=== PATIENT | female | born 1985 | race Caucasian/White ===

== ENCOUNTER 2017-06-07 17:09 | Observation (INO) | payer OTHER ==
[~2017-06-07 17:09] MED LIST: ISOVUE-370 76%-LOCM 1 ML ONE
[2017-06-07 17:40] LABS: #Lymphocytes 0.8 thou/uL (1.20-3.40); #Monocytes 0.7 thou/uL (0.11-0.59); #Neutrophils 4.4 thou/uL (1.40-6.50); %Basophils 0.3 % (0.0-1.0); %Eosinophils 0.6 % (0.0-10.0); %Lymphocytes 12.7 % (21.0-51.0); %Monocytes 12.4 % (0.0-10.0); %Neutrophils 73.9 % (42.0-75.0); Hemoglobin 11.9 g/dL (12.0-16.0); Mean Corpuscular HGB CONC 33.1 g/dL (32.0-36.0); Mean Corpuscular Hemoglobin 27.2 pg (27.0-31.0); Mean Corpuscular Volume 82.2 fl (81.0-99.0); Mean Platelet Volume 6.8 fL (7.4-10.4); Platelet Count 284 thou/uL (130-400); RBC Distribution Width 13.2 % (11.5-14.5); Red Blood Cell (RBC) Count 4.39 mill/uL (4.20-5.40); White Blood Cell (WBC) Count 5.9 thou/uL (4.8-10.8)
[2017-06-07] MEDS ORDERED: Ondansetron HCl/PF 4 MG/2 ML Vial ONE ×2 (17:52→21:40)
[2017-06-07] MEDS ORDERED: Acetaminophen 500 MG TAB ONE (17:52)
[2017-06-07 17:57] LABS: BHCG - Serum Negative (NEGATIVE); Pregs Control Background? CLEAR/WHITE (CLR/WHITE); Pregs Control Bar Appear? YES (CONTROL BAR)
--- NOTE | 2017-06-07 18:01 | RAD ---
CHEST ONE VIEW PORTABLE: 06/07/17 HISTORY: 31-year-old female with history of shortness of breath, vomiting, and dyspnea. Monitor leads overlie the chest. Heart size is within normal limits. No confluent pneumonia, overt ed zander, or pleural effusion. IMPRESSION: No acute intrathoracic disease. No evidence for edema, pneumonia, or pleural effusion. POS: [facility]
[2017-06-07 18:05] LABS: ALT (SGPT) 17 U/L (8-55); AST (SGOT) 16 U/L (5-34); Albumin 4.3 g/dL (3.5-5.0); Alkaline Phosphatase 61 U/L (40-150); Anion Gap 14 mmol/L (10-20); BUN (Urea Nitrogen) 8 mg/dL (7.0-18.7); Bilirubin, Total 0.6 mg/dL (0.2-1.2); CK (CPK) 60 U/L (29-168); CKMB 0.3 ng/mL (0-6.6); Calc. Creatinine Clearance 0 mL/min (70-130); Calcium 9.3 mg/dL (7.8-10.44); Carbon Dioxide 22 mmol/L (22-29); Chloride 104 mmol/L (98-107); Estimated GFR-MDRD 79; Globulin 3.7 g/dL (2.4-3.5); Glucose 101 mg/dL (70-105); Sodium 136 mmol/L (136-145); Troponin I Less than 0.010 ng/mL (< 0.028)
[2017-06-07] MEDS ORDERED: Promethazine HCl 25 MG/ML VIAL ONE (18:22)
--- NOTE | 2017-06-07 19:26 | ULT ---
RIGHT LOWER EXTREMITY VENOUS DUPLEX ULTRASOUND INCLUDING COLOR AND SPECTRAL DOPPLER IMAGIN06/07/17 HISTORY: 31-year-old female with history of right leg pain. Exam performed from groin to ankle including visualized greater saphenous, common femoral, superficia l femoral, profunda femoral, popliteal, and trifurcation, and posterior tibial vein regions. There is phasic flow at all levels with normal compressibility and normal augmentation. No intraluminal throm bus. IMPRESSION: No evidence for deep venous thrombosis. POS: [facility]
--- NOTE | 2017-06-07 20:22 | CT ---
CT ANGIO OF CHEST WITH IV CONTRAST: 06/07/17 Multiple axial tomograms obtained through the chest following pulmonary angio protocol with multiplan ar reconstructions and 3D postprocessing. INDICATION: Shortness of breath and chest pain. FINDINGS: Pulmonary arteries show adequate opacification. There are multiple small bilateral pulmonary emboli identified. Tiny emboli are seen to the segmental level of all lobes bilaterally. Review of the lung tran reveal nodular infiltrative process which is most prominent involving the l eft upper lobe. There are numerous nodular opacities present with the largest measuring up to 1.6 cm. An atypical nodular infectious infiltrate should be considered. The lung tran otherwise appear clear. No effusion. Mediastinum is unremarkable. Images through the upper abdomen unremarkable. IMPRESSION: 1. Numerous small bilateral pulmonary emboli seen to segmental arteries of all lobes of both janeen gs. 2. There is a nodular infiltrative process involving the left upper lobe. An atypical infectious process should be considered. Close followup is recommended. Findings were relayed to Dr. Miranda. Code CR POS: [facility]
[2017-06-07] MEDS ORDERED: Ketorolac Tromethamine 30 MG/ML VIAL ONE (20:24)
[2017-06-07] MEDS ORDERED: Azithromycin 500 MG VIAL ONE (20:36)
[2017-06-07] MEDS ORDERED: HYDROcodone/Acetaminophen 5/325 mg Tablet ONE (21:40)
[2017-06-07] MEDS ORDERED: cefTRIAXone\\ROCEPHIN 2 GM in Sodium Chloride 0.9% 100 ML IVPB SCH (21:45)
[2017-06-07] MEDS ORDERED: Rivaroxaban 15 MG TAB PO SCH ×2 (22:00→22:53)
[2017-06-07] MEDS ORDERED: Dextrose 5 % And 0.9 % NaCl 1,000 ML IV SCH (22:45)
[2017-06-07] MEDS ORDERED: Ondansetron ODT 4 MG TAB PO PRN (22:53)
[2017-06-07] MEDS ORDERED: HYDROcodone/Acetaminophen 5/325 mg Tablet PO PRN (22:53)
[2017-06-07] MEDS ORDERED: Acetaminophen 325 MG TAB PO PRN (22:53)
[2017-06-07] MEDS ORDERED: Ondansetron HCl/PF 4 MG/2 ML Vial IVP PRN (22:53)
[2017-06-07 22:55] VITALS: BMI 43.0
[2017-06-07 23:50] LABS: INR-International Normal Ratio 1.2; PTT 35.1 SEC (22.9-36.1)
[2017-06-07 23:51] LABS: D-Dimer Test 1.59 *mcg/mL (0.27-0.43)
[2017-06-07] MEDS: tiZANidine HCl 4 MG TAB PO PRN (23:58)
[2017-06-08] MEDS ORDERED: traMADol HCl 50 MG TAB PO SCH (03:15)
[2017-06-08 04:59] LABS: Anion Gap 9 mmol/L (10-20); BUN (Urea Nitrogen) 8 mg/dL (7.0-18.7); Calc. Creatinine Clearance 175 mL/min (70-130); Calcium 8.4 mg/dL (7.8-10.44); Carbon Dioxide 23 mmol/L (22-29); Chloride 109 mmol/L (98-107); Estimated GFR-MDRD 86; Glucose 109 mg/dL (70-105); Magnesium 2.1 mg/dL (1.6-2.6); Potassium 3.8 mmol/L (3.5-5.1); Sodium 137 mmol/L (136-145)
[2017-06-08 05:08] LABS: Band 2 % (5-11); Hemoglobin 10.2 g/dL (12.0-16.0); Lymphocytes 35 % (21-51); MDiff Complete? YES; Mean Corpuscular HGB CONC 33.4 g/dL (32.0-36.0); Mean Corpuscular Hemoglobin 27.7 pg (27.0-31.0); Mean Corpuscular Volume 83.1 fl (81.0-99.0); Monocytes 17 % (0-10); Neutrophil 46 % (42-75); Platelet Count 241 thou/uL (130-400); RBC Distribution Width 13.1 % (11.5-14.5); Red Blood Cell (RBC) Count 3.67 mill/uL (4.20-5.40); White Blood Cell (WBC) Count 4.2 thou/uL (4.8-10.8)
[2017-06-08] MEDS: Doxycycline 100 MG CAP PO SCH ×2 (08:25→20:30)
[2017-06-08] MEDS: Rivaroxaban 15 MG TAB PO SCH ×2 (08:26→20:30)
[2017-06-08] MEDS: tiZANidine HCl 4 MG TAB PO PRN ×3 (08:26→21:55)
[2017-06-08] MEDS: Famotidine 20 MG TAB PO SCH ×2 (08:26→20:30)
--- NOTE | 2017-06-08 08:41 | HP ---
DATE OF ADMISSION: 06/07/2017 TIME OF SERVICE: 2245 hours. PRIMARY CARE PHYSICIAN: Dr. Inez Barreto. CHIEF COMPLAINT: Shortness of breath, nausea, vomiting, and chest pain. HISTORY OF PRESENT ILLNESS: Ms. Nguyen is a 31-year-old female with history of obesity and past Meckel's diverticulum status post-surgical resection who presents to the emergency department for complaints of shortness of breath and right leg cramps. This has been going on really for 2 days with leg cramps worse today. This evening, she developed nausea and vomiting and a fever of 101 and some chest tightness. She presents to the emergency department for workup. Labs were normal. D-dimer was elevated at 1.99. She had a CT angiogram that showed multiple small pulmonary emboli in the bilateral lungs and left upper lobe atypical infiltrate. She did have fever in the ER to 101+ and so was given a dose of Rocephin. We were called for admission. On arrival to the floor, the patient was feeling better. No nausea, vomiting anymore. Still continues to have right lower extremity cramps. She has had some pleuritic type chest pain, rated about 7/10 and some functional shortness of breath, but feels like she is getting air in and out okay. She did not receive any anticoagulation in the emergency department. PAST MEDICAL HISTORY: None. PAST SURGICAL HISTORY: 1. Partial small bowel resection for Meckel's diverticulum. 2. Appendectomy with cholecystectomy. 3. Bilateral tubal ligation. HOME MEDICATIONS: None. ALLERGIES: ADHESIVE BANDAGE, REGLAN and PENICILLIN G. They both cause almost projectile like vomiting. FAMILY HISTORY: Negative for clotting or bleeding disorders. No immune dysfunction. SOCIAL HISTORY: Negative for habits x3. 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 She has not had any recent travel, no prolonged car trips or plane rides. REVIEW OF SYSTEMS: A 10-point review of systems was performed and is negative for all systems except as per HPI. PHYSICAL EXAMINATION: VITAL SIGNS: Temperature is 100.6, pulse 117, blood pressure 159/73, respiratory rate 21, satting 97% on room air. GENERAL: She is awake. She is alert. She is oriented x3, she is a well- developed, well-nourished, obese white female, appears to be in no distress. HEENT: Normocephalic and atraumatic. Pupils are equal, round, and reactive bilaterally, mucous membranes are moist. She has no visible lesion, no thrush. NECK: Supple. There is no lymphadenopathy, no JVD, no thyromegaly. LUNGS: Clear. She has good air movement. Symmetrical chest excursion. There is no wheezing, no rales, no rhonchi. No prolonged expiratory phase. CARDIOVASCULAR: She has normal S1, S2. She is tachycardic, but regular. No audible murmurs. ABDOMEN: Obese, nontender, nondistended. She has no rebound, rigidity or guarding. I cannot palpate internal organs. EXTREMITIES: Show no signs of clubbing, and no edema. SKIN: Warm, moist, and well perfused. There are no rashes or lesions. Does have some muscle tenseness in the right calf. There are no palpable cords. NEUROLOGIC: Cranial nerves II-XII are grossly intact without any focal neurologic deficit. She has 5/5 strength in all 4 extremities. She has a normal speech pattern. MUSCULOSKELETAL: Normal to inspection. Large joints appear uninflamed. There are no palpable effusions and good range of motion. LABORATORY DATA: Sodium 136, potassium 4.0, chloride 104, bicarbonate 22, BUN 8 , creatinine 0.83, glucose 101, calcium 9.3. Liver function is completely within normal limits. Her CBC shows white count of 5.9, hemoglobin 11.9, hematocrit of 32.1, platelet count is 284,000. Chest x-ray is negative. CT angiogram showed multiple small pulmonary emboli and left upper lobe atypical infiltrate as above. Ultrasound of the right leg is negative for DVT. ASSESSMENT AND PLAN: 1. Pulmonary emboli: Patient has multiple small emboli present on CT angiogram. I will start her on Xarelto 15 mg p.o. b.i.d. She does have a which is on their formulary. She will need the starter pack and then 2 months of supply. She does want to get a 90-day supply at once. As far as workup, I did get hypercoagulable panels drawn before she got her first dose of Xarelto, so we will follow up on the results of that. 2. Chest pain secondary to pulmonary emboli. Symptomatic treatment. 3. Sinus tachycardia secondary to pulmonary emboli. Watch for overnight observation. Biomarkers were negative. Watch on telemetry. 4. Obesity. 5. Atypical left upper lobe pneumonia. We will place her on doxycycline 100 mg p.o. b.i.d. Watch overnight for observation. If things look better in the morning, we will let her go home. JUANID
[2017-06-08] MEDS: HYDROcodone/Acetaminophen 5/325 mg Tablet PO PRN ×2 (12:38→16:57)
--- NOTE | 2017-06-08 14:27 | PDOC.PN ---
- Subjective Encounter Start Date: 06/08/17 Encounter Start Time: 14:29 Subjective: No new complaints -: No acute events overnight - Objective Resuscitation Status: Resuscitation Status FULL:Full Resuscitation MAR Reviewed: Yes Vital Signs & Weight: Vital Signs (12 hours) Temp Pulse Resp BP Pulse Ox 06/08/17 11:28 97.6 F 72 16 98/52 L 97 06/08/17 07:41 97.9 F 66 20 06/08/17 07:05 97.9 F 79 18 109/63 100 06/08/17 04:07 66 98/57 L 06/08/17 03:08 97.9 F 64 20 89/54 L 97 Weight Weight 235 lb 9.6 oz I&O: 06/07/17 06/08/17 06/09/17 06:59 06:59 06:59 Intake Total 200 600 Output Total 500 200 Balance -300 400 Result Diagrams: 06/08/17 04:07 06/08/17 04:07 Phys Exam - Physical Examination Constitutional: NAD HEENT: PERRLA, moist MMs, sclera anicteric, TM's clear Neck: no JVD, supple, full ROM Respiratory: no wheezing, no rales, no rhonchi, clear to auscultation bilateral Cardiovascular: RRR (s1 s2 only), no significant murmur, no rub Gastrointestinal: soft, non-tender, no distention, positive bowel sounds Musculoskeletal: no edema, pulses present Neurological: non-focal, normal sensation, moves all 4 limbs Psychiatric: normal affect, A&O x 3 Skin: no rash, normal turgor Dx/Plan (1) Acute pulmonary embolism Code(s): I26.99 - OTHER PULMONARY EMBOLISM WITHOUT ACUTE COR PULMONALE Status : Acute Qualifiers: Acute cor pulmonale presence: without acute cor pulmonale Comment: Stable. Started on Xarelto. ECHO ordered. (2) Atypical pneumonia Code(s): J18.9 - PNEUMONIA, UNSPECIFIED ORGANISM Status: Acute Comment: Continue Doxycycline. (3) Chest pain Code(s): R07.9 - CHEST PAIN, UNSPECIFIED Status: Resolved Qualifiers: Chest pain type: other chest pain Qualified Code(s): R07.89 - Other chest pain; R07.8 - Other chest pain Comment: 2/2 PE. Resolved. (4) Tachycardia Code(s): R00.0 - TACHYCARDIA, UNSPECIFIED Status: Resolved Comment: 04/08 PE. (5) Obesities, morbid Code(s): E66.01 - MORBID (SEVERE) OBESITY DUE TO EXCESS CALORIES Status: Acute Comment: 04/08 Excessive caloric intake. Counseled. - Plan cont current plan of care * . Review of Systems - Medications/Allergies Allergies/Adverse Reactions: Allergies Allergy/AdvReac Type Severity Reaction Status Date / Time adhesive Allergy Severe Rash Verified 06/07/17 22:57 penicillin G Allergy Severe Nausea Verified 06/07/17 22:57 metoclopramide [From Reglan] Allergy Nausea Verified 06/07/17 22:57 Medications: Current Medications Acetaminophen (Tylenol) 650 mg PO Q4H PRN PRN Reason: Headache/Fever or Pain Hydrocodone Bitart/Acetaminophen (Bryce 5/325) 1 tab PO Q4H PRN PRN Reason: Moderate Pain (4-6) Last Admin: 06/08/17 07:13 Dose: 1 tab Hydrocodone Bitart/Acetaminophen (Bryce 5/325) 2 tab PO Q4H PRN PRN Reason: Severe Pain (7-10) Last Admin: 06/08/17 12:38 Dose: 2 tab Doxycycline Hyclate (Vibramycin) 100 mg PO BID [facility] Last Admin: 06/08/17 08:25 Dose: 100 mg Famotidine (Pepcid) 20 mg PO BID [facility] Last Admin: 06/08/17 08:26 Dose: 20 mg Ondansetron HCl (Zofran Odt) 4 mg PO Q6H PRN PRN Reason: Nausea/Vomiting Ondansetron HCl (Zofran) 4 mg IVP Q6H PRN PRN Reason: Nausea/Vomiting Rivaroxaban (Xarelto) 15 mg PO BID [facility] Last Admin: 06/08/17 08:26 Dose: 15 mg Sodium Chloride (Flush - Normal Saline) 10 ml IVF PRN PRN PRN Reason: Saline Flush Tizanidine HCl (Zanaflex) 4 mg PO TID PRN PRN Reason: Muscle Spasm Last Admin: 06/08/17 14:07 Dose: 4 mg
[2017-06-08] MEDS ORDERED: Morphine 5 MG/ML SYRINGE SLOW IVP SCH (20:30)
[2017-06-08] MEDS ORDERED: Cepastat Lozenges 1 LOZ PO PRN (20:30)
[2017-06-08] MEDS ORDERED: Zolpidem Tartrate 5 MG TAB PO PRN (23:07)
[2017-06-09] MEDS: Famotidine 20 MG TAB PO SCH (07:33)
[2017-06-09] MEDS: tiZANidine HCl 4 MG TAB PO PRN (07:33)
[2017-06-09] MEDS: Rivaroxaban 15 MG TAB PO SCH (07:34)
[2017-06-09] MEDS: Doxycycline 100 MG CAP PO SCH (07:34)
[2017-06-09 07:45] VITALS: TEMP 99.1
[2017-06-09 07:53] VITALS: BP 144/80
[2017-06-09] MEDS ORDERED: Acetaminophen/Codeine 30-300mg Tablet PO PRN (09:31)
--- NOTE | 2017-06-10 01:10 | DIS ---
DATE OF ADMISSION 06/07/2017 DATE OF DISCHARGE: 06/09/2017 DISCHARGE DIAGNOSES: Acute pulmonary embolism, atypical pneumonia, chest pain, tachycardia, morbid obesity. HISTORY OF PRESENT ILLNESS: Ms. Wendy Lombardi is a 31-year-old female with a history of obesity and past Meckel's diverticulum status post surgical resection , who presented to the emergency department with shortness of breath and right leg cramps. The patient had pain reported going on for the past 2 days and on the evening of presentation, developed nausea and vomiting with a fever of 101 with some chest tightness. She presented to the emergency room for a workup. Labs were normal. D-dimer was elevated at 1.99. She had a CT angiogram, which showed multiple small pulmonary emboli in bilateral lungs and left upper lobe atypical infiltrates. She was initially started in the emergency room on IV Rocephin for atypical pneumonia. Internal Medicine was then called for admission. On arrival, the patient reported feeling better. She had no nausea or vomiting, but still complains of right lower extremity cramps; pleuritic- type chest pain, rated about 7/10; and some functional shortness of breath, but she had oxygen saturation in the mid 90s. She was started on anticoagulation with Xarelto and pain control. Hypercoagulable workup was also done and TTE ordered. HOSPITAL COURSE: She was admitted on telemetry and continued on Xarelto. She had medications ordered for pain control, which included IV morphine and [place] as well as Tylenol. However, during her stay, she continued to refuse most of the medications that were offered to her. Her oxygen saturations remained in the mid 90s and she did not require oxygen supplementation. She was saturating ranging between 100% and 95% on room air. We also did an exercise oximetry and the patient remained between 95%-96% while ambulating. She seemed comfortable; however, the patient reported that she wanted to have a full 90-day supply of anticoagulation due to her insurance running out in the next few days; however, her pharmacy refused to fill that prescription and stated they only fill for 30- day supply. The patient was very upset with this and wanted to keep staying in the hospital to receive medications; however, there was no indication for further hospital stay. She was saturating well on room air, chest pain was well controlled and was on medication for muscle spasm in her right leg. Labs while in the hospital were unremarkable. The patient was therefore deemed stable for discharge. DISCHARGE MEDICATIONS: Doxycycline 100 mg twice a day, rivaroxaban 15 mg twice a day, tizanidine 4 mg 3 times a day as needed for muscle spasm, acetaminophen with codeine 1 tablet every 6 hours as needed for [id number] pain. PHYSICAL EXAMINATION: She was examined on the day of discharge. VITAL SIGNS: Temperature 99.1, pulse rate 91, respiratory rate 18, oxygen saturation 95% on room air, blood pressure 144/80. GENERAL: Not in acute distress. She was lying comfortably in bed and seems comfortable. HEENT: PERRLA. EOMI. Moist mucous membranes. Sclerae are anicteric, not pale. NECK: No JVD. Supple with full range of movement. RESPIRATORY: Vesicular breath sounds bilaterally. No wheezes, rales, or rhonchi. CHEST: Nontender to palpation. CARDIOVASCULAR: Regular rate and rhythm. S1, S2 only with no murmurs, rubs, or gallops. GASTROINTESTINAL: Soft, nontender, nondistended. Bowel sounds normoactive. No hepatosplenomegaly. MUSCULOSKELETAL: No edema. Pulses present. NEUROLOGIC: Alert; awake; and oriented to time, place, and person. No focal deficits. PSYCHIATRIC: Normal mood and affect. SKIN: Warm, dry, and well perfused. No rashes or lesions. LABORATORY DATA: Sodium 137, potassium 3.8, chloride 109, carbon dioxide 23, anion gap 9, BUN 8, creatinine 0.77, glucose 109, calcium 8.4, magnesium 2.1. Hemoglobin 10.2, WBC 4.2, platelet counts 241. IMAGING: Vascular ultrasound, which showed no evidence of deep vein thrombosis in the right leg. CTA chest/thorax, as reported in HPI. Chest x-ray, no acute intrathoracic disease, no evidence of pneumonia or pleural effusion. PROCEDURES: None. CONSULTATIONS: None. CONDITION AT DISCHARGE: Stable and improved. DIET: Regular. ACTIVITY: To resume as tolerated. The patient is instructed to return to the emergency room if she develops any shortness of breath, chest pain, or leg swelling. She is to follow up with her primary care physician within 1 week of discharge with results of her hypercoagulable workup. She was also instructed that this workup might be required further down the line as workup during her current therapy might be negative. CARE GOALS: To follow up with primary care physician within 1 week of discharge. DISCHARGE TIME: 65 minutes including chart review and documentation. TETO
[2017-06-10 12:14] LABS: Protein C Activity 89 % (78-152)
[2017-06-10 12:18] LABS: Factor VIII Test 152.9 % ACTIVE (56-157)
[2017-06-14 01:09] LABS: Activated Protein C Resistance 2.7 ratio (.); Hexagonal Phospholipid Neut 11 sec (.)
== END 2017-06-09 13:32 | disposition home or self-care (01) ==
LOC: ERS 17:09 → 2SW 20:02
PROVIDERS: ADMIT Emergency Medicine; ATTEND Emergency Medicine
DX: Z91.048 Other nonmedicinal substance allergy status; E66.01 Morbid (severe) obesity due to excess calories; Z98.890 Other specified postprocedural states; I26.99 Other pulmonary embolism without acute cor pulmonale; R00.0 Tachycardia, unspecified; Z88.8 Allergy status to other drugs, medicaments and biological substances; Z68.41 Body mass index [BMI] 40.0-44.9, adult; Z88.0 Allergy status to penicillin; J18.8 Other pneumonia, unspecified organism
CPT/HCPCS: 36415; 71045; 71275; 80048; 80053; 81240; 82550; 82553; 83090; 83605; 83735; 84484; 84703; 85025; 85240; 85300; 85303; 85305; 85307; 85379; 85598; 85610; 85730; 87040; 93005; 93306; 94640; 96365; 96367; 96375; 96376; J2270; G0378; J0456; J0696; J1885; J2405; J2550; J7050; J7620; Q0162

== ENCOUNTER 2017-06-16 15:36 | Observation (INO) | payer OTHER, SELFPAY ==
[2017-06-16] MEDS ORDERED: Acetaminophen 500 MG TAB PO PRN (16:00)
[2017-06-16] MEDS ORDERED: Lactated Ringer's 1,000 ML IV SCH (16:00)
[2017-06-16] MEDS ORDERED: CEFAZOLIN/Water 2 GM/20 ML SYRINGE SLOW IVP SCH (16:15)
[2017-06-16 16:30] LABS: #Basophils 0.1 thou/uL (0.0-0.2); #Eosinphils 0.1 thou/uL (0.0-0.7); #Lymphocytes 2.4 thou/uL (1.20-3.40); #Monocytes 0.5 thou/uL (0.11-0.59); #Neutrophils 4.5 thou/uL (1.40-6.50); %Basophils 0.7 % (0.0-1.0); %Eosinophils 0.7 % (0.0-10.0); %Lymphocytes 32.4 % (21.0-51.0); %Neutrophils 60.2 % (42.0-75.0); Hemoglobin 8.8 g/dL (12.0-16.0); Mean Corpuscular HGB CONC 31.8 g/dL (32.0-36.0); Mean Corpuscular Hemoglobin 26.2 pg (27.0-31.0); Mean Corpuscular Volume 82.5 fl (81.0-99.0); Mean Platelet Volume 7.1 fL (7.4-10.4); Platelet Count 381 thou/uL (130-400); RBC Distribution Width 12.5 % (11.5-14.5); Red Blood Cell (RBC) Count 3.34 mill/uL (4.20-5.40); White Blood Cell (WBC) Count 7.4 thou/uL (4.8-10.8)
--- NOTE | 2017-06-16 19:29 | HP ---
HISTORY OF PRESENT ILLNESS: Ms. Nguyen is a 31-year-old white female G2, P2 with tubal ligation who wa s recently admitted on 06/07/2017 for acute pulmonary embolism and also findings of atypical left upp er lobe pneumonia. She was evaluated on that time with CT angiogram of the chest due to shortness of breath and chest pain and was noted to have multiple small pulmonary emboli with an atypical infiltr ate seen in the left upper lobe. She was started on Xarelto 15 mg p.o. b.i.d. along with antibiotic therapy for the atypical pneumonia. She was observed in-house and remained stable with satisfactory O2 saturations on room in the 95 percentile. She has been having irregular menorrhagia and has history of PCOS for which she was initiated for men strual bleeding in 03/2017 by myself. She had had an ultrasound in my office on 03/22/2017 showing t he uterus measured 10 x 5 x 5.8 cm with normal adnexa, no evidence of uterine fibroids. She had an e ndometrial thickness of 12 mm. The patient has now continued to bleed heavily and has increased her bleeding where she was saturatin g a maxi pad in less than an hour over the past few days. This is most likely exacerbated due to Xar elto use. She does feel somewhat having more dyspnea on exertion due to the heavy bleeding. Her mos t recent hematocrit at discharge, on 06/08/2017, was 30%. She has had significant bleeding since the n and I do suspect her to be significantly more anemic now. PAST MEDICAL HISTORY: As per HPI. PAST SURGICAL HISTORY: She has had a partial small bowel obstruction with resection of Meckel's dive rticula. She has had appendectomy and cholecystectomy and also a tubal ligation. CURRENT MEDICATIONS: Xarelto 15 mg b.i.d. and Tylenol for pain. ALLERGIES: She has allergies to ADHESIVE BANDAGES, REGLAN, and PENICILLIN. SOCIAL HISTORY: She is a nonsmoker, nondrinker, no IV drug use. 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 FAMILY HISTORY: Negative for any thrombophilia. PHYSICAL EXAMINATION: GENERAL: The patient does appear pale. VITAL SIGNS: Her blood pressure is 142/90; her pulse is 115, it is regular; respirations are 16. He r weight is 223, height 64 inches, a BMI of 38. HEENT: Within normal limits. CHEST: Clear to auscultation. HEART: Tachycardic and regular. ABDOMEN: Soft and nontender. PELVIC: Vulva and vagina had no lesions. She has significant amount of vaginal vault bleeding seen from supracervical. It was difficult to visualize the cervix due to the clot. Uterus is small and n ontender. Adnexa are nontender with no masses. IMAGING: She did have a normal echo on admission with a normal ejection fraction back on 06/07/2017. ASSESSMENT: 1. Recent acute pulmonary embolism, anticoagulated on Xarelto. 2. Persistent worsening menorrhagia due to her history of irregular cycles, polycystic ovary syndrom e, and now recent anticoagulation. 3. Symptomatic anemia. 4. Tachycardia. PLAN: To do 23-hour observation now with CBC on arrival, possible need for transfusion, and plan is for D&C with hysteroscopy and endometrial ablation in the a.m. with Helene device. The patient is a xie hopefully this will improve her bleeding and stop or slow the bleeding at this point. Hope for this minimal invasive approach to avoid the need for hysterectomy and her anticoagulated state.
[2017-06-16] MEDS ORDERED: Calcium Carbonate 500 MG ChewTAB PO PRN (19:31)
[2017-06-16] MEDS ORDERED: Loratadine 10 MG TAB PO PRN (19:31)
[2017-06-16] MEDS ORDERED: Nitroglycerin 0.4 MG TAB (25 Tab Bottle) SL PRN (19:31)
[2017-06-16] MEDS ORDERED: PROVENTIL INHALER 6.7 G (200 INHALATIONS) INH PRN (19:31)
[2017-06-16] MEDS ORDERED: Ondansetron HCl/PF 4 MG/2 ML Vial IVP PRN (19:31)
[2017-06-16] MEDS ORDERED: hydrALAZINE 20 MG/ML VIAL SLOW IVP PRN (19:31)
[2017-06-16] MEDS ORDERED: Benzonatate 100 MG CAP PO PRN (19:31)
[2017-06-16] MEDS ORDERED: Famotidine/PF 20 mg/2ml Vial SLOW IVP PRN (19:31)
[2017-06-16] MEDS ORDERED: cloNIDine 0.1 MG TAB PO PRN (19:31)
[2017-06-16] MEDS ORDERED: Diabetic Tussin 200 MG/10 ML UDCUP PO PRN (19:31)
[2017-06-16] MEDS ORDERED: Mag-Al 1200 mg/1200 mg/30 ML UDCUP PO PRN (19:31)
[2017-06-16] MEDS ORDERED: Bisacodyl 5 MG TAB PO PRN (19:31)
[2017-06-16] MEDS ORDERED: Senokot 8.6 MG TAB PO PRN (19:31)
[2017-06-16] MEDS ORDERED: Ondansetron HCl/PF 4 MG/2 ML Vial SLOW IVP PRN (19:41)
[2017-06-16] MEDS ORDERED: Morphine 5 MG/ML SYRINGE SLOW IVP PRN (19:42)
[2017-06-16 20:13] LABS: ALT (SGPT) 31 U/L (8-55); AST (SGOT) 14 U/L (5-34); Albumin 3.4 g/dL (3.5-5.0); Alkaline Phosphatase 65 U/L (40-150); Anion Gap 11 mmol/L (10-20); BUN (Urea Nitrogen) 15 mg/dL (7.0-18.7); Bilirubin, Total 0.4 mg/dL (0.2-1.2); Calc. Creatinine Clearance 165 mL/min (70-130); Calcium 8.5 mg/dL (7.8-10.44); Carbon Dioxide 25 mmol/L (22-29); Chloride 105 mmol/L (98-107); Estimated GFR-MDRD 86; Globulin 2.4 g/dL (2.4-3.5); Glucose 133 mg/dL (70-105); Potassium 3.1 mmol/L (3.5-5.1); Protein, Total 5.8 g/dL (6.0-8.3); Sodium 138 mmol/L (136-145)
[2017-06-16] MEDS: traMADol HCl 50 MG TAB PO PRN (20:17)
[2017-06-16] MEDS: Lorazepam 1 MG TAB PO PRN (20:17)
--- NOTE | 2017-06-16 20:18 | RAD ---
RADIOGRAPH OF CHEST SINGLE VIEW SERIES 06/16/17 COMPARISON: 06/07/17 INDICATION: History of pulmonary emboli with chest pain. FINDINGS: There is no lobar consolidation, effusion or pneumothorax. The cardiac silhouette is accentuated by p ortable technique. IMPRESSION: No focal consolidation. POS: [facility]
[2017-06-16] MEDS ORDERED: Potassium Chloride 20 MEQ TAB PO SCH (20:30)
[2017-06-16] MEDS: Zolpidem Tartrate 5 MG TAB PO PRN (21:15)
[2017-06-16] MEDS ORDERED: Heparin 10,000 UNITS/ 10 ML VIAL SLOW IVP SCH (21:15)
--- NOTE | 2017-06-16 21:21 | PDOC.EVN ---
Event Note - Event Note Event Note: Concerns addressed for day time nurse BryceSona. reportedly Sound team was paged 3 times since 4.30.Did show her all the beepers including Sound and my personal beeper. No pages received from 4-7.30 PM ,when im here on the floor to see pt.. has already answered the call by this nurse received on his personal pager at 6.36PM. He has gone and talked to nurse and now i have addressed the same issue.Correct numbers for Sound Admitter pager given to nurse who wrote it down. I'm unaware as to what number they were paging as Sound Admitter beeper never received any pages during the stated time frame.Issue brought up to senior production supervisor as well to further address.
--- NOTE | 2017-06-16 21:23 | CON ---
DATE OF CONSULTATION: 06/16/2017 PRIMARY CARE PHYSICIAN: Inez Barreto MD REASON FOR CONSULTATION: "Abnormal EKG," preop clearance, recent pulmonary embolism. HISTORY OF PRESENT ILLNESS: Ms. Nguyen is a 31-year-old female who was recently admitted under Interna l Medicine service earlier this month and was diagnosed with bilateral pulmonary embolism, presented as a direct admit from GROCERY SUPERVISOR's office today for vaginal bleed. History is mainly obtained by the breann dahl herself and electronic medical records have been reviewed. Ms. Nguyen was recently admitted on 06/07/2017 and was discharged on 06/09/2017. At that time, she pre sented with shortness of breath, leg cramping, nausea, vomiting, fever, and elevated D-dimer. CT ang io was done which showed multiple small bilateral pulmonary emboli. At that time, she underwent righ t lower extremity ultrasound which was negative for any DVT. Echocardiogram was also done which was unremarkable. She was discharged on Xarelto and inhalers and has been compliant with it. The patient reports chronic heavy menses for the last few months. She has been seen by Dr. Jo at the [facility] multiple times in the past according to her. She reports that she was started on oral contraceptives, which failed to control her bleeding, so they were doubled. She reports she has been having heavy menses again for the last 10 days or so. She was having the bleeding during her l [facility] hospitalization as well. Please note that she reports that the bleeding has not changed since sh e has been started on Xarelto. She reports passing huge clots and using one big box of tampons per d ay. Since her hospitalization this afternoon by Dr. Jo as a direct admit from her clinic, the patient has orders to start 1 unit of packed RBCs. Her hemoglobin has dropped from 10.2 on 06/08/2017 to 8. 8 today. She was also found to be tachycardic with EKG showing sinus tachycardia. Thankfully, she i s not hypotensive. She has also been started on IV fluids and the plan is for her to undergo D&C und er general anesthesia in the morning. [facility] team has been consulted for preop humera chandrakant as well as "abnormal EKG" and her recent pulmonary embolism. At this time, the patient endorses shortness of breath as well as pleuritic chest pain, palpitations and weakness. The patient denies any hematochezia, melena or hematemesis. She denies any hematuria. She denies any abdominal pain. PAST MEDICAL HISTORY: 1. Bilateral pulmonary embolisms earlier this month. 2. History of Meckel's diverticulum status post partial small bowel resection. 3. History of heavy menstrual bleed. PAST SURGICAL HISTORY: 1. Partial small bowel resection for Meckel's diverticulum. 2. Appendectomy with cholecystectomy. 3. Bilateral tubal ligation. HOME MEDICATIONS: Xarelto 15 mg p.o. b.i.d. and Ventolin 2 puffs q.4 hours p.r.n. ALLERGIES: 1. ADHESIVE BANDAGE. 2. REGLAN. 3. PENICILLIN G. FAMILY HISTORY: Negative for any clotting or bleeding disorders. No immune dysfunction. SOCIAL HISTORY: The patient works at [employer]. She has no history of drug, tob acco or alcohol abuse. REVIEW OF SYSTEMS: The following complete review of systems was negative, unless otherwise mentioned in the HPI or below: Constitutional: Weight loss or gain, ability to conduct usual activities. Sk in: Rash, itching. Eyes: Double vision, pain. ENT/Mouth: Nose bleeding, neck stiffness, pain, te nderness. Cardiovascular: Palpitations, dyspnea on exertion, orthopnea. Respiratory: Shortness of breath, wheezing, cough, hemoptysis, fever or night sweats. Gastrointestinal: Poor appetite, abdom inal pain, heartburn, nausea, vomiting, constipation, or diarrhea. Genitourinary: Urgency, frequenc y, dysuria, nocturia. Musculoskeletal: Pain, swelling. Neurologic/Psychiatric: Anxiety, depressio n. Allergy/Immunologic: Skin rash, bleeding tendency. LABORATORY DATA: Hemoglobin as mentioned above. Serum chemistry shows potassium of 3.1. Blood suga r 133. Chest x-ray by my review has no evidence to suggest any pulmonary effusion, edema or infiltra te. A 12-lead EKG reviewed by myself shows sinus tachycardia. PHYSICAL EXAMINATION: VITAL SIGNS: Temperature 98.8, pulse of 102, respirations 18, saturating 99% on room air, blood pres sure 133/82. GENERAL: She does appear a little bit pale, but otherwise awake, alert, oriented x3. HEENT: Mucous membrane is moist and pink. No oropharyngeal exudate or erythema. Head is normocepha lic, atraumatic. Pupils equal, reactive to light and accommodation. Extraocular movements are intac t. NECK: Supple without any lymphadenopathy, JVD or bruit. CHEST: Clear to auscultation without any wheezing, rales or rhonchi. Rate and rhythm is regular, bu t tachycardic. No murmurs appreciated. ABDOMEN: Soft, nontender, nondistended, positive bowel sounds. EXTREMITIES: Show trace pitting edema bilaterally. NEUROLOGIC: Nonfocal. SKIN: Free of any rashes or bruises. Feels warm and dry to touch. PSYCHIATRIC: Normal affect. IMPRESSION AND PLAN: 1. Preoperative clearance. The patient has recent history of bilateral pulmonary embolism and is ve ry high risk for pulmonary decompensation under general anesthesia. At this time, we would not be ab le to clear her for the surgery due to high risk. We will request consultation from Pulmonary Medici ne to do the clearance for pulmonary issues. I have discussed this with Dr. Jo at this time. 2. Vaginal bleed. The patient will be followed by Dr. Jo for possible D&C when she has been nakul ared preoperatively. 3. Acute blood loss anemia. The patient will be needing transfusion tonight as ordered by the [facility]. We will monitor H&H closely after that. In the light of heavy menstrual bleeding and actua lly a significant drop in the hemoglobin, we recommend holding the Xarelto for tonight. Please note that the patient remains at very high risk for complications from pulmonary embolism, which she misse s more doses. We will request Pulmonary Medicine to address this issue if she is safe to restart Xar elto from tomorrow morning. This will also depend upon the amount of bleeding tonight and her repeat H&H after transfusion. 4. Sinus tachycardia, most likely this is secondary to volume depletion. We will start her on slade l saline and she will also be resuscitated with IV fluids. If her tachycardia does not resolve, we w ill have low threshold to transfer her to telemetry unit. At this time, we will request a vital sign check every 2 hours. Her EKG showed sinus tachycardia and her recent echo was within normal limits. The possibility of a cardiac event is very less likely. 5. Recent pulmonary embolism. It is a difficult situation. The patient does report that this vagin al bleed is not new for her. One can argue to restart the Xarelto at the situation if it was not for her acute blood loss anemia. We will hold the dose tonight and request Pulmonary Medicine to addres s this issue in the morning. At this time, we will continue her inhalers and add nebulizers and oxyg en p.r.n. and symptomatic and supportive treatment. Use sequential compression devices for now as jessi sloan did not have any blood clots during her last hospitalization. DISPOSITION: At this time, Internal Medicine team will continue to follow. Once again, we will keep low threshold for transferring her to telemetry unit if she remains tachycardic. The patient is at high risk for decompensation because of bilateral pulmonary embolism. I have discussed the case with Dr. Jo for now. Her D and C for tomorrow morning is temporarily canceled until cleared by Pulmo [facility] Medicine. Internal Medicine team will follow. Thank you for letting us participate in the care of this patient.
[2017-06-16] MEDS ORDERED: Heparin 25,000 units/D5W 500 ML IVPB SCH (21:30)
[2017-06-16 22:05] LABS: Hemoglobin 7.2 g/dL (12.0-16.0); Platelet Count 334 thou/uL (130-400)
[2017-06-17 00:50] VITALS: BMI 39.0
[2017-06-17] MEDS: Sodium Chloride 0.9% 1,000 ML IV SCH ×3 (01:35→20:31)
[2017-06-17 01:46] LABS: Hemoglobin 7.8 g/dL (12.0-16.0)
[2017-06-17] MEDS: Lorazepam 1 MG TAB PO PRN ×3 (05:02→17:05)
[2017-06-17 05:34] LABS: Hemoglobin 8.1 g/dL (12.0-16.0)
[2017-06-17 05:38] LABS: Hemoglobin 8.1 g/dL (12.0-16.0)
[2017-06-17 05:55] LABS: Anion Gap 12 mmol/L (10-20); BUN (Urea Nitrogen) 12 mg/dL (7.0-18.7); Calc. Creatinine Clearance 176 mL/min (70-130); Calcium 8.3 mg/dL (7.8-10.44); Carbon Dioxide 23 mmol/L (22-29); Chloride 106 mmol/L (98-107); Estimated GFR-MDRD 90; Glucose 102 mg/dL (70-105); Sodium 138 mmol/L (136-145)
[2017-06-17 08:16] LABS: PTT Greater than 250.0 SEC (22.9-36.1)
[2017-06-17] MEDS: traMADol HCl 50 MG TAB PO PRN ×2 (08:37→17:02)
--- NOTE | 2017-06-17 08:42 | PDOC.EVN ---
Event Note - Event Note Event Note: SENIOR INFORMATION SECURITY CONSULTANT Patient reports saturating pad q 1 hour. Feels some better after one unit of prbc's. Was transferred to telemetry last night by SOUND service. Heparin drip initiated. Awaiting Pulmonary consult prior to surgical procedure and also stabilize patient medically... Plan for D&C with endometrial ablation to help slow patient's menorrhagia. I suspect the recent heavier flow has occurred after ocp was stopped on 06/07 from pulmonary embolism issue and she has had a withdrawl bleed... Pulse 104. 117/71 R16 O2 sat96%...HCT 24.6% Plan: Await medical clearance. Hope to proceed with D&C endometrial ablation either today or in AM to control menorrhagia.Hysterectomy last resort at this time due to recent PE and anticoagulation.
[2017-06-17] MEDS ORDERED: Potassium Chloride 20 MEQ TAB PO SCH (08:45)
[2017-06-17 10:35] LABS: Hemoglobin 7.6 g/dL (12.0-16.0)
[2017-06-17 10:35] LABS: Hemoglobin 7.5 g/dL (12.0-16.0)
--- NOTE | 2017-06-17 14:47 | PDOC.PN ---
- Subjective Encounter Start Date: 06/17/17 Encounter Start Time: 14:45 Subjective: feels better.still having heavy vaginal bleeding but same as MARKETING PROGRAMS MANAGER -: no dizziness - Objective MAR Reviewed: Yes Vital Signs & Weight: Vital Signs (12 hours) Temp Pulse Resp BP BP Pulse Ox 06/17/17 11:41 98.7 F 104 H 16 128/77 95 06/17/17 08:00 98.4 F 99 16 126/72 97 06/17/17 07:58 98.4 F 99 16 126/72 97 Weight Weight 227 lb 6.4 oz I&O: 06/16/17 06/17/17 06/18/17 06:59 06:59 06:59 Intake Total 743 Output Total 500 Balance 243 Result Diagrams: 06/17/17 10:11 06/17/17 05:10 Additional Labs: Laboratory Tests 06/16/17 06/16/17 06/17/17 16:20 21:57 01:34 Hgb 8.8 L 7.2 L 7.8 L 06/17/17 06/17/17 06/17/17 05:10 05:10 10:10 Hgb 8.1 L 8.1 L 7.6 L 06/17/17 10:11 Hgb 7.5 L Phys Exam - Physical Examination Constitutional: NAD pale HEENT: PERRLA, moist MMs, sclera anicteric, oral pharynx no lesions Neck: no JVD Respiratory: no wheezing, no rales, no rhonchi, clear to auscultation bilateral Cardiovascular: RRR, no significant murmur Gastrointestinal: soft, non-tender, no distention, positive bowel sounds Musculoskeletal: no edema, pulses present Neurological: non-focal, normal sensation, moves all 4 limbs Psychiatric: normal affect, A&O x 3 Skin: no rash Dx/Plan (1) Acute blood loss anemia Code(s): D62 - ACUTE POSTHEMORRHAGIC ANEMIA Status: Acute Comment: s/p 1 unit PRBC (2) Vagina bleeding Code(s): N93.9 - ABNORMAL UTERINE AND VAGINAL BLEEDING, UNSPECIFIED Status: Acute (3) Pulmonary embolism Code(s): I26.99 - OTHER PULMONARY EMBOLISM WITHOUT ACUTE COR PULMONALE Status : Acute (4) Obesities, morbid Code(s): E66.01 - MORBID (SEVERE) OBESITY DUE TO EXCESS CALORIES Status: Chronic Comment: 2/2 Excessive caloric intake. Counseled. (5) Chest pain Code(s): R07.9 - CHEST PAIN, UNSPECIFIED Status: Resolved Qualifiers: Chest pain type: other chest pain Qualified Code(s): R07.89 - Other chest pain; R07.8 - Other chest pain Comment: 2/2 PE. Resolved. (6) Tachycardia Code(s): R00.0 - TACHYCARDIA, UNSPECIFIED Status: Resolved Comment: 2/2 PE. (7) Hyperthyroidism Code(s): E05.90 - THYROTOXICOSIS, UNSP WITHOUT THYROTOXIC CRISIS OR STORM Status: Acute Comment: Low TSH,NL Free T4. - Plan respiratory therapy, out of bed/ambulate, DVT proph w/SCDs Weighing risk over benefits,pt started Heparin drip.cont same. -: Vaginal bleed unrelated to heparin drip.H/H stable. cont q4hr -: awaiting PCCM recs for pre-op clerance for D&C under Gen anesthesia -: xarelto on hold.OB-Attraction Attendant primary . -: will follow.cont nebs,inhalers etc.supportive care * . Check Free T3 and Thyrotropin binding ABs to r/o Graves.May need RAIU study. if HR still high,consider adding a BB Review of Systems - Review of Systems Constitutional: weakness. negative: fever, chills, sweats, malaise, other ENT: negative: Ear Pain, Ear Discharge, Nose Pain, Nose Discharge, Nose Congestion, Mouth Pain, Mouth Swelling, Throat Pain, Throat Swelling, Other Respiratory: negative: Cough, Dry, Shortness of Breath, Hemoptysis, SOB with Excertion, Pleuritic Pain, Sputum, Wheezing Cardiovascular: negative: chest pain, palpitations, orthopnea, paroxysmal nocturnal dyspnea, edema, light headedness, other Gastrointestinal: negative: Nausea, Vomiting, Abdominal Pain, Diarrhea, Constipation, Melena, Hematochezia, Other Genitourinary: negative: Dysuria, Frequency, Incontinence, Hematuria, Retention , Other Musculoskeletal: negative: Neck Pain, Shoulder Pain, Arm Pain, Back Pain, Hand Pain, Leg Pain, Foot Pain, Other Skin: negative: Rash, Lesions, Ángel, Bruising, Other Neurological: negative: Weakness, Numbness, Incoordination, Change in Speech, Confusion, Seizures, Other - Medications/Allergies Allergies/Adverse Reactions: Allergies Allergy/AdvReac Type Severity Reaction Status Date / Time adhesive Allergy Severe Rash Verified 06/07/17 22:57 penicillin G Allergy Severe Nausea Verified 06/07/17 22:57 metoclopramide [From Reglan] Allergy Nausea Verified 06/07/17 22:57 Medications: Current Medications Acetaminophen (Tylenol) 1,000 mg PO Q6H PRN PRN Reason: Headache/Fever or Pain Al Hydroxide/Mg Hydroxide (Maalox) 15 ml PO Q4H PRN PRN Reason: Heartburn or Indigestion Albuterol Sulfate (Proventil Hfa) 2 puff INH Q4H PRN PRN Reason: Cough Last Admin: 06/16/17 21:30 Dose: 2 puff Albuterol/Ipratropium (Duoneb) 3 ml NEB [id number] PRN PRN Reason: SOB &/or Wheezing Benzonatate (Tessalon) 100 mg PO Q4H PRN PRN Reason: Cough Bisacodyl (Dulcolax) 10 mg PO DAILYPRN PRN PRN Reason: Constipation Calcium Carbonate (Tums) 1,000 mg PO Q4H PRN PRN Reason: Heartburn or Indigestion Cefazolin Sodium (Ancef) 2 gm SLOW IVP ONCALL-OR DONNIE Stop: 06/17/17 16:16 Clonidine (Catapres) 0.1 mg PO Q4H PRN PRN Reason: Systolic BP > 160 Guaifenesin (Robitussin Sf) 200 mg PO Q4H PRN PRN Reason: Cough Heparin Sodium (Porcine) (Heparin 1,000 Units/Ml (10 Ml)) 0 units SLOW IVP ASDIR DONNIE PRN Reason: Protocol Last Admin: 06/17/17 01:35 Dose: 8,240 unit Hydralazine HCl (Apresoline) 10 mg SLOW IVP Q4H PRN PRN Reason: Systolic BP > 170 Sodium Chloride (Normal Saline 0.9%) 1,000 mls @ 75 mls/hr IV .[id number] DONNIE Last Admin: 06/17/17 10:56 Dose: 1,000 mls Heparin Sodium/Dextrose (Heparin 25,000 Units/D5w 500 Ml) 500 mls @ 0 mls/hr IVPB INF DONNIE; Per Protocol PRN Reason: Protocol Last Admin: 06/17/17 01:37 Dose: 500 mls Loratadine (Claritin) 10 mg PO DAILYPRN PRN PRN Reason: Sinus Symptoms Lorazepam (Ativan) 1 mg PO Q4H PRN PRN Reason: Anxiety/Agitation Last Admin: 06/17/17 12:17 Dose: 1 mg Morphine Sulfate (Morphine) 2 mg SLOW IVP Q2H PRN PRN Reason: PAIN, IF NPO Nitroglycerin (Nitrostat) 0.4 mg SL Q5MIN PRN PRN Reason: Chest Pain Ondansetron HCl (Zofran) 4 mg SLOW IVP Q6H PRN PRN Reason: Nausea Pantoprazole Sodium (Protonix) 40 mg PO DAILY DONNIE Last Admin: 06/16/17 21:21 Dose: 40 mg Senna (Senokot) 2 tab PO HSPRN PRN PRN Reason: Constipation Tramadol HCl (Ultram) 50 mg PO Q4H PRN PRN Reason: Moderate Pain (4-6) Last Admin: 06/17/17 08:37 Dose: 50 mg Tramadol HCl (Ultram) 50 mg PO Q6H PRN PRN Reason: PAIN SCALE 1-5 Tramadol HCl (Ultram) 100 mg PO Q6H PRN PRN Reason: PAIN SCALE 6-10 Last Admin: 06/16/17 20:17 Dose: 100 mg Zolpidem Tartrate (Ambien) 5 mg PO HSPRN PRN PRN Reason: .SLEEP Last Admin: 06/16/17 21:15 Dose: 5 mg
[2017-06-17] MEDS: Zolpidem Tartrate 5 MG TAB PO PRN (20:31)
[2017-06-17] MEDS: hydrOXYzine 25 MG TAB PO PRN (20:31)
--- NOTE | 2017-06-17 23:07 | CON ---
DATE OF CONSULTATION: 06/17/2017 Ms. Nguyen is a 31-year-old female who has a history of heavy menses. Dr. Jo has been attempting to manage this medically. Apparently, she presented here on 06/07/2017 in the evening with complaints of shortness of breath. CT angiogram done that evening showed multiple small bilateral emboli. Left upper lobe nodular infiltrate was also seen. She was hospitalized from early in the morning on 06/08/2017 until the next day. She was sent out [facility] anticoagulated and Dr. Jo tells me she had a prescription for a loading dose of Xarelto for 9 0 days. She presented back to Dr. Jo clinic with a resting tachycardia, and was admitted yesterday. She was switched from Xarelto to heparin and was noted to have a PTT of greater than 250 this morning . She was scheduled tentatively for an endometrial ablation which could not be performed. I was consulted to assist in the management of her anticoagulation. Her hemoglobin yesterday was 8.8 with a resting tachycardia. She has been transfused. Her hemoglobi n when she went home on the was 10.2, last year in December was 14.5. She says she has continued to bleed heavily ever since discharge. PAST MEDICAL HISTORY: 1. Remarkable for surgery for Meckel's diverticulum in the past. 2. History of a cholecystectomy. 3. Appendectomy. 4. History of tubal ligation. SOCIAL HISTORY: She is nonsmoker, nondrinker, does not use drugs. She is employed by [employer], physician office clin asst. She has not had any recent travel leading up to this. FAMILY HISTORY: Negative for lung disease or hypercoagulable states. REVIEW OF SYSTEMS: Otherwise negative. Her only complaint is weakness, lightheadedness, and extreme ly heavy menses. Ten points Otherwise negative. PHYSICAL EXAMINATION: GENERAL: She was seen by me this evening, heart rate 106. She is afebrile, respiratory rate 16, oxi metry 97 on room air. VITAL SIGNS: Blood pressure 123/78. HEENT: Pupils are equal. She appears pale to me, but says she has a pale complexion. NECK: Supple, no lymphadenopathy. LUNGS: Clear. HEART: Regular rhythm, no S3. ABDOMEN: Soft and nontender. EXTREMITIES: Without edema or asymmetry. Hemoglobin when last drawn at 10:00 was 7.5. Electrolytes are normal. PTT was 64 at 10:00 this morning, so heparin restarted. I have stopped her heparin. IMPRESSION: Menorrhagia increased in the face of anticoagulation. She has a contraindication to ant icoagulation at this point a full dose. Her anticoagulants should be held until her surgery has been completed and we reasonably sure, she will not continue to hemorrhage. I have discussed the above w pita Jo. Thrombosis panel reportedly was ordered, but all I can find with Cardiolite and anti body panel, which was negative. I do not find antithrombin III, protein C, protein S. If this was n ot done, this will just have to be done at a later date. At 30 years of age, I would be concerned about a hypercoagulable state. In regard to her upper lobe nodular infiltrate, this will need to be re-imaged and probably 2-4 weeks . This radiograph on last admission was not typical presentation for bacterial pneumonia. She has n o pulmonary symptoms at this time. Other problems, clinically stable. 1. History of coronary artery bypass grafting with a followup catheterization that showed clean jens naries. I think he has had a recent catheterization. 2. 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 3. History of hypertension. 4. History of a lipid disorder. 5. History of negative VQ scan in 2016. 6. Obesity and deconditioning. I will follow her while she is in the hospital. This is a 50-minute consult greater than 50% of the time was spent in coordinating care.
--- NOTE | 2017-06-17 23:46 | CON ---
ADDENDUM: DATE OF CONSULTATION: 06/17/2017 Other problems, clinically stable. 1. History of coronary artery bypass grafting with a followup catheterization that showed clean jens naries. I think he has had a recent catheterization. 2. 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 3. History of hypertension. 4. History of a lipid disorder. 5. History of negative VQ scan in 2016. 6. Obesity and deconditioning. This is a 50-minute consult greater than 50% of the time was spent in coordinating care.
[2017-06-18 05:21] LABS: INR-International Normal Ratio 1.2; PTT 26.8 SEC (22.9-36.1); Prothrombin Time 14.9 SEC (12.0-14.7)
[2017-06-18] MEDS ORDERED: CEFAZOLIN/Water 2 GM/20 ML SYRINGE ONE (07:47)
[2017-06-18] MEDS ORDERED: Fentanyl 100 MCG/2 ML VIAL ONE (07:52)
[2017-06-18] MEDS ORDERED: HYDROmorphone 0.5 MG/0.5 ML SYRINGE ONE (07:52)
--- NOTE | 2017-06-18 08:56 | EKG ---
Test Reason : Blood Pressure : / mmHG Vent. Rate : 111 BPM Atrial Rate : 111 BPM P-R Int : 136 ms QRS Dur : 072 ms QT Int : 354 ms P-R-T Axes : 007 001 010 degrees QTc Int : 481 ms Poor data quality, interpretation may be adversely affected /Baseline artifact Sinus tachycardia Junctional ST depression, probably abnormal /Minimal Abnormal ECG When compared with ECG of 07-JUN-2017 17:12, (Unconfirmed) No significant change was found Confirmed by TEAGAN JOHNSON ([id number]) on 06/18/2017 8:56:01 AM Referred By: Confirmed By:TEAGAN JOHNSON
[2017-06-18] MEDS ORDERED: Atenolol 25 MG TAB PO SCH ×2 (09:00)
--- NOTE | 2017-06-18 09:24 | PDOC.OP ---
Operative Note - Operative Note Operative Note: Pre-op Dx:31 y/o WF with prior BTL. Menorrhagia. Failed medicalmanagement. Recent pumonary embolism on OCP's Anticoagulation. Post op dx:same Procedure: D&C with laura endometrilal ablation.Post procedure Hysteroscopy Anesthesia:general Surgeon:Sandro EBL:10ml Pathology:endometrial currettings Findings:endometrial cavity with minimal tissue noted with currenttings. Gritty texture throughout after scraping. Sound 10 cm. Treatment PFA setting 5.5 cm. Treatment cycle time 120 sec. Post ablation inspection of endometrial cavity with good ablation throughout. complications:none Dispostion:RR then to floor to restart anticoagualtion per pulmonary.
[2017-06-18] MEDS ORDERED: Meperidine HCl/PF 25 MG/ML VIAL ONE (09:30)
[2017-06-18] MEDS ORDERED: diphenhydrAMINE 50 MG/ML VIAL ONE (10:15)
[2017-06-18] MEDS: traMADol HCl 50 MG TAB PO PRN ×2 (10:51→20:56)
[2017-06-18] MEDS: Lorazepam 1 MG TAB PO PRN (11:01)
--- NOTE | 2017-06-18 11:30 | OP ---
DATE OF PROCEDURE: 06/18/2017 PREOPERATIVE DIAGNOSES: 1. A 31-year-old white female, G2, P2, prior tubal ligation with a long history of polycystic ovary syndrome. 2. Menorrhagia, failed medical management, trial of oral contraceptives. 3. Recent pulmonary embolism on oral contraceptives and on anticoagulation with persistent heavy men orrhagia. 4. Symptomatic blood loss anemia. POSTOPERATIVE DIAGNOSES: 1. A 31-year-old white female, G2, P2, prior tubal ligation with a long history of polycystic ovary syndrome. 2. Menorrhagia, failed medical management, trial of oral contraceptives. 3. Recent pulmonary embolism on oral contraceptives and on anticoagulation with persistent heavy men orrhagia. 4. Symptomatic blood loss anemia. PROCEDURES PERFORMED: 1. D&C. 2. Endometrial ablation with the Helene device. 3. Post-ablation hysteroscopy. SURGEON: Noemí oJ M.D. ANESTHESIA: General. ESTIMATED BLOOD LOSS FROM PROCEDURE: 10 mL. COMPLICATIONS: None. COUNTS: Correct x2. ANTIBIOTICS: Two grams Ancef induction machine operator to the OR. FINDINGS: 1. No vaginal or cervical lesions noted on exam. Uterus sounded to 10 cm. 2. Treatment: PFA for Helene device was 5.5 cm with completion of the 120 seconds treatment cycle. 3. Post-ablation endometrial cavity assessment showed no heavy active bleeding in the endometrium. Subsiding of this with no obvious fibroids seen. Good ablation in upper fundus and lower uterine seg ment throughout with sparing of the endocervical cavity. DISPOSITION: Then will be to recovery room with stat hemoglobin and hematocrit on arrival. Possible need for additional unit of blood transfusion, pending her hemoglobin and hematocrit and plan for jemma ryder back to the floor where she will be initiated back on her anticoagulation regimen per the Pulm onary Service.
--- NOTE | 2017-06-18 11:37 | PDOC.PN ---
- Subjective Encounter Start Date: 06/18/17 Encounter Start Time: 11:35 Subjective: s/p D&C and ablation.very agitated and rude with nursing staff -: c/o anxiety,no pain. - Objective MAR Reviewed: Yes Vital Signs & Weight: Vital Signs (12 hours) Temp Pulse Resp BP Pulse Ox 06/18/17 04:00 97.9 F 114 H 16 121/69 97 Weight Weight 229 lb 5.28 oz I&O: 06/17/17 06/18/17 06/19/17 06:59 06:59 06:59 Intake Total 743 900 Output Total 500 1000 Balance 243 -100 Result Diagrams: 06/18/17 09:56 06/17/17 05:10 Additional Labs: Laboratory Tests 06/16/17 06/16/17 06/17/17 16:20 21:57 01:34 Hgb 8.8 L 7.2 L 7.8 L 06/17/17 06/17/17 06/17/17 05:10 05:10 10:10 Hgb 8.1 L 8.1 L 7.6 L 06/17/17 06/18/17 10:11 09:56 Hgb 7.5 L 7.0 L Laboratory Tests 06/16/17 06/17/17 06/18/17 19:43 05:10 04:32 Free T4 1.25 Free T3 3.02 TSH 3rd Generation 0.1932 L Phys Exam - Physical Examination Constitutional: NAD very pale HEENT: PERRLA, moist MMs, sclera anicteric, oral pharynx no lesions Neck: no nodes, no JVD, supple, full ROM Respiratory: no wheezing, no rales, no rhonchi, clear to auscultation bilateral Cardiovascular: RRR, no significant murmur Gastrointestinal: soft, non-tender, no distention, positive bowel sounds Musculoskeletal: no edema, pulses present Neurological: non-focal, normal sensation, moves all 4 limbs Psychiatric: A&O x 3 Skin: no rash Dx/Plan (1) Acute blood loss anemia Code(s): D62 - ACUTE POSTHEMORRHAGIC ANEMIA Status: Acute Comment: s/p 1 unit PRBC (2) Vagina bleeding Code(s): N93.9 - ABNORMAL UTERINE AND VAGINAL BLEEDING, UNSPECIFIED Status: Acute (3) Pulmonary embolism Code(s): I26.99 - OTHER PULMONARY EMBOLISM WITHOUT ACUTE COR PULMONALE Status : Acute (4) Obesities, morbid Code(s): E66.01 - MORBID (SEVERE) OBESITY DUE TO EXCESS CALORIES Status: Chronic Comment: 2/2 Excessive caloric intake. Counseled. (5) Chest pain Code(s): R07.9 - CHEST PAIN, UNSPECIFIED Status: Resolved Qualifiers: Chest pain type: other chest pain Qualified Code(s): R07.89 - Other chest pain; R07.8 - Other chest pain Comment: 2/2 PE. Resolved. (6) Tachycardia Code(s): R00.0 - TACHYCARDIA, UNSPECIFIED Status: Resolved Comment: 2/ PE. (7) Hyperthyroidism Code(s): E05.90 - THYROTOXICOSIS, UNSP WITHOUT THYROTOXIC CRISIS OR STORM Status: Acute Comment: Low TSH,NL Free T4. - Plan DVT proph w/SCDs H/H low again ,will transfuse 1 more unit of blood. -: low TSH but NL T3/T4.? subclinical Hyperthyroidism.will send for TrBA. -: recommend OP f/u w PCP for Thyroid US/RAIU for full work up.Pt notified -: PE amangement per PCCM. -: will follow at a distance * . Review of Systems - Review of Systems ENT: negative: Ear Pain, Ear Discharge, Nose Pain, Nose Discharge, Nose Congestion, Mouth Pain, Mouth Swelling, Throat Pain, Throat Swelling, Other Respiratory: negative: Cough, Dry, Shortness of Breath, Hemoptysis, SOB with Excertion, Pleuritic Pain, Sputum, Wheezing Cardiovascular: negative: chest pain, palpitations, orthopnea, paroxysmal nocturnal dyspnea, edema, light headedness, other Gastrointestinal: negative: Nausea, Vomiting, Abdominal Pain, Diarrhea, Constipation, Melena, Hematochezia, Other Genitourinary: negative: Dysuria, Frequency, Incontinence, Hematuria, Retention , Other Musculoskeletal: negative: Neck Pain, Shoulder Pain, Arm Pain, Back Pain, Hand Pain, Leg Pain, Foot Pain, Other Skin: negative: Rash, Lesions, Ángel, Bruising, Other Neurological: negative: Weakness, Numbness, Incoordination, Change in Speech, Confusion, Seizures, Other - Medications/Allergies Allergies/Adverse Reactions: Allergies Allergy/AdvReac Type Severity Reaction Status Date / Time adhesive Allergy Severe Rash Verified 06/07/17 22:57 penicillin G Allergy Severe Nausea Verified 06/07/17 22:57 metoclopramide [From Reglan] Allergy Nausea Verified 06/07/17 22:57 Medications: Current Medications Acetaminophen (Tylenol) 1,000 mg PO Q6H PRN PRN Reason: Headache/Fever or Pain Al Hydroxide/Mg Hydroxide (Maalox) 15 ml PO Q4H PRN PRN Reason: Heartburn or Indigestion Albuterol Sulfate (Proventil Hfa) 2 puff INH Q4H PRN PRN Reason: Cough Last Admin: 06/16/17 21:30 Dose: 2 puff Albuterol/Ipratropium (Duoneb) 3 ml NEB [id number] PRN PRN Reason: SOB &/or Wheezing Atenolol (Tenormin) 25 mg PO DAILY [facility] Last Admin: 06/18/17 10:51 Dose: 25 mg Benzonatate (Tessalon) 100 mg PO Q4H PRN PRN Reason: Cough Bisacodyl (Dulcolax) 10 mg PO DAILYPRN PRN PRN Reason: Constipation Calcium Carbonate (Tums) 1,000 mg PO Q4H PRN PRN Reason: Heartburn or Indigestion Clonidine (Catapres) 0.1 mg PO Q4H PRN PRN Reason: Systolic BP > 160 Guaifenesin (Robitussin Sf) 200 mg PO Q4H PRN PRN Reason: Cough Hydralazine HCl (Apresoline) 10 mg SLOW IVP Q4H PRN PRN Reason: Systolic BP > 170 Hydroxyzine HCl (Atarax) 25 mg PO TIDPRN PRN PRN Reason: .ITCHING Last Admin: 06/17/17 20:31 Dose: 25 mg Sodium Chloride (Normal Saline 0.9%) 1,000 mls @ 75 mls/hr IV .[id number] [facility] Last Admin: 06/17/17 20:31 Dose: 1,000 mls Loratadine (Claritin) 10 mg PO DAILYPRN PRN PRN Reason: Sinus Symptoms Lorazepam (Ativan) 1 mg PO Q4H PRN PRN Reason: Anxiety/Agitation Last Admin: 06/18/17 11:01 Dose: 1 mg Morphine Sulfate (Morphine) 2 mg SLOW IVP Q2H PRN PRN Reason: PAIN, IF NPO Nitroglycerin (Nitrostat) 0.4 mg SL Q5MIN PRN PRN Reason: Chest Pain Ondansetron HCl (Zofran) 4 mg SLOW IVP Q6H PRN PRN Reason: Nausea Pantoprazole Sodium (Protonix) 40 mg PO DAILY [facility] Last Admin: 06/18/17 10:51 Dose: 40 mg Senna (Senokot) 2 tab PO HSPRN PRN PRN Reason: Constipation Tramadol HCl (Ultram) 50 mg PO Q4H PRN PRN Reason: Moderate Pain (4-6) Last Admin: 06/18/17 10:51 Dose: 50 mg Tramadol HCl (Ultram) 50 mg PO Q6H PRN PRN Reason: PAIN SCALE 1-5 Tramadol HCl (Ultram) 100 mg PO Q6H PRN PRN Reason: PAIN SCALE 6-10 Last Admin: 06/16/17 20:17 Dose: 100 mg Zolpidem Tartrate (Ambien) 5 mg PO HSPRN PRN PRN Reason: .SLEEP Last Admin: 06/17/17 20:31 Dose: 5 mg
[2017-06-18] MEDS ORDERED: Morphine 4 MG/ML VIAL SLOW IVP PRN (12:56)
[2017-06-18] MEDS: Sodium Chloride 0.9% 1,000 ML IV SCH (13:08)
[2017-06-18] MEDS ORDERED: Ketorolac Tromethamine 30 MG/ML VIAL IVP SCH (13:30)
[2017-06-18] MEDS ORDERED: Fentanyl 100 MCG/2 ML VIAL SLOW IVP SCH (13:45)
[2017-06-18] MEDS: Ketorolac Tromethamine 30 MG/ML VIAL IVP SCH ×2 (14:10→20:59)
[2017-06-18] MEDS ORDERED: Ondansetron ODT 4 MG TAB PO PRN (14:15)
--- NOTE | 2017-06-18 15:04 | OP ---
DATE OF PROCEDURE: 06/18/2017 DESCRIPTION OF PROCEDURE: Patient previously received informed consent in regards to surgery. Taken back to the operating room where she received a general endotracheal anesthetic agent without compli cations and placed in the dorsal lithotomy position with use of Jomar stirrups. She was prepped and draped in usual sterile fashion. In and out catheterization of bladder was performed. A sidearm spe culum was placed in the vagina and the anterior lip of cervix grasped with single tooth tenaculum. T he uterus sounded to 10 cm. The cervix was then noted to be soft and dilated to allow the size 16 He gar dilator easily. A sharp curettage of the endometrial cavity in a circumferential direction was c arried out. Removal of tissue was sent for final pathology. The Helene device was then assembled. The fundal cavity length for the treatment was calculated to be 5.5 cm. The Helene device was plac ed and usual checks were carried out. There appeared to be CO2 leak and on inspection of the device, the cervical collar inflatable seal was leaking and then hand device was obtained. The usual checks again of the device were carried out. The device was then inserted to 5.5 cm treatment length and C O2 cavity assessment cleared by making the cervix titer with an additional tenaculum closing a leak a t the cervix, which was somewhat floppy. The treatment cycle was carried out for 120 seconds and the Helene device was removed. Hysteroscope was then introduced through the cervix into the endometria l cavity. This cavity was distended with saline and the endometrial cavity appeared well ablated in both upper fundus and lower uterine segment with sparing the endocervical cavity. No active endometr ial cavity bleeding was visualized. The tenaculum was then removed. There was some bleeding on the tenaculum site, which was made hemostatic with Bovie cautery at 30 hurley and pressure from a sponge s tick. Hemostasis was obtained. The patient was awakened from anesthesia. Fluid deficit was less th an 100 mL from the distension emitting off the hysteroscope. The patient was then transferred to rec overy room in stable condition.
[2017-06-18] MEDS ORDERED: Ondansetron HCl/PF 4 MG/2 ML Vial ONE (15:35)
[2017-06-18] MEDS ORDERED: PROPOFOL 200 MG/20 ML VIAL ONE (15:35)
[2017-06-18] MEDS ORDERED: Dexamethasone 20 MG/5 ML VIAL ONE (15:35)
[2017-06-18] MEDS ORDERED: Lidocaine 1% PF 5 ML VIAL ONE (15:35)
[2017-06-18] MEDS: hydrOXYzine 25 MG TAB PO PRN ×2 (15:52→22:14)
--- NOTE | 2017-06-18 20:56 | PRG ---
DATE OF SERVICE: 06/18/2017 SUBJECTIVE: Ms. Nguyen had her procedure this morning. Heart rate is now 90. She is afebrile and res piratory rate is 16. I have discontinued her beta-devin. There is no indication for beta-devin in this setting of tachycardia associated with bleeding. OBJECTIVE: VITAL SIGNS: Oximetry is 96 on room air and blood pressure 122/58. LUNGS: Clear. HEART: Regular rhythm. ABDOMEN: Soft. I do not see where the complete thrombosis panel was done, so at some point this will have to be done , but I would probably wait until she is off of anticoagulation to do the hypercoagulable workup. Tete sloan was on hormone therapy, so this may be a contributing factor. Her hemoglobin is still 7 grams this morning, so she has been transfused more. Probably, start her o n an anticoagulant at a full dose in the morning, but use an agent reversible such as Pradaxa. She h as 3 months of Xarelto at home, but it is the wrong dose. She has 15 mg tablets and she does not nee d 3 months of 15 mg twice a day. She is very angry and frustrated with the situation, which as I have explained to her, I have no cont rol over the situation she is in. Fortunately, she is better. Her vaginal bleeding has stopped, so hopefully the ablation procedure will be successful long-term. She will need 3 months of anticoagula tion. She is concerned that she has lost her insurance. Again, I have no control over this, but the re are assistance programs available for the newer anticoagulants.
[2017-06-18] MEDS: ALPRAZolam 0.25 MG TAB PO PRN (20:59)
[2017-06-18 21:53] LABS: Hemoglobin 8.7 g/dL (12.0-16.0); Platelet Count 332 thou/uL (130-400)
[2017-06-19] MEDS: Sodium Chloride 0.9% 1,000 ML IV SCH ×2 (02:00→17:47)
[2017-06-19 05:10] LABS: Hemoglobin 7.8 g/dL (12.0-16.0); Mean Corpuscular HGB CONC 32.8 g/dL (32.0-36.0); Mean Corpuscular Hemoglobin 27.9 pg (27.0-31.0); Mean Corpuscular Volume 85.2 fl (81.0-99.0); Mean Platelet Volume 7.2 fL (7.4-10.4); Platelet Count 306 thou/uL (130-400); RBC Distribution Width 13.4 % (11.5-14.5); Red Blood Cell (RBC) Count 2.79 mill/uL (4.20-5.40)
[2017-06-19] MEDS: traMADol HCl 50 MG TAB PO PRN ×3 (05:52→20:50)
--- NOTE | 2017-06-19 07:42 | PDOC.EVN ---
Event Note - Event Note Event Note: chart reviewed. Replace potassium.ordered recheck in am. H/H per primary team AC per PCCM.recoomend Outpatient follow up-will refer. Will recommend Atenolol for symptoms of Hyperthyroidism (anxiety,palpitations) and NOT blood loss tachycardia.Will need outpatient Work up for Hyperthyroidism with Ultrasound and /OR Radioactive Iodine Uptake.Will defer to primary team .I doubt she is tachycardic only because of volume loss as it persists despite adequate volume and blood replenishment.BB are first line of treatment for symptoms of Hyperthyroidism.Recommend starting at lowest possible dose. Will Sign Off for now.
[2017-06-19] MEDS ORDERED: Potassium Chloride 20 MEQ TAB PO SCH (07:45)
--- NOTE | 2017-06-19 09:11 | PDOC.EVN ---
Event Note - Event Note Event Note: Feels much better. Reports no vaginal bleeding. O2 sat on room air 98% pulse 90 perineum dry. no vaginal bleeding seen Hgb 7.8 this AM after one additional unit A/P:Post op day 1 from D&C with laura endometrial ablation. Menorrhagia appears to have resolved. Hemodynamically stable Pulmonary to address antocagulation therapy today for pulmonary embolism treatment. patient is ok for discharge home from my stand point. F/u with me in 2 weeks. OTC iron supplement d/w patient BID.
[2017-06-19] MEDS ORDERED: Apixaban 5 MG TAB PO SCH (11:30)
[2017-06-19] MEDS: ALPRAZolam 0.25 MG TAB PO PRN (13:17)
--- NOTE | 2017-06-19 16:17 | PRG ---
DATE OF SERVICE: 06/19/2017 Maria C Nguyen has moved off telemetry. There has been no bleeding reported. She was taking a shower w hen I made rounds. Her hemoglobin is still below 8 grams, but stable. Dr. Mg's office and my office both have samples of Eliquis, so will start her on the Eliquis. This has a shorter half life as well, so hopefully we can keep her supplied. I would monitor for at least 24 hours to make sure she is not bleeding before she is discharged home. She will be fully an ticoagulated by this evening and will continue on Eliquis 5 mg twice a day. I would not start her on a loading dose at this time. With regards to beta blockers, the hospital has put a note she was concerned about hyperthyroidism. This is not thyroid storm. There is no indication for acute treatment with a beta devin in the set ting of ongoing blood loss. Her T3 and T4 are normal. She has a slightly low TSH. Free thyroxine i ndex has been ordered by me, but I still feel that beta blockers are not indicated at this time. Her thyroid function workup is relatively simple workup and can be done as an outpatient. Hopefully, if she does not have a fall in her hemoglobin or external bleeding, we can consider discharge tomorrow afternoon.
[2017-06-19] MEDS: Apixaban 5 MG TAB PO SCH (20:51)
[2017-06-20] MEDS: traMADol HCl 50 MG TAB PO PRN (02:14)
[2017-06-20 06:56] LABS: Hemoglobin 7.9 g/dL (12.0-16.0)
[2017-06-20] MEDS: Apixaban 5 MG TAB PO SCH (08:38)
--- NOTE | 2017-06-20 12:34 | PRG ---
DATE OF SERVICE: 06/20/2017 Ms. Nguyen has no more bleeding. She denies having any discomfort. She wants to take the Xarelto she has at home, but I have explained to her that it is the wrong dose and she absolutely cannot do this. She has at least one child at home and I have explained to her this medicine should be actually dis posed of outside in the garbage can so a child cannot get to it. We have a sample card for her to get her a month's worth of Eliquis 5 mg twice a day. She will start on this. She will have her hemoglobin checked with Dr. Jo at her discretion. From a pulmonary standpoint, she will need 3 months of anticoagulation. She did not have the entire thrombosis panel drawn, so this will need to be ordered after she is off of all of her anticoagulants , although at this point in time her bleeding and her hormone use will be the expected culprit in her thromboembolic events. I see no reason to keep her in the hospital. She is ambulating and showering by herself. I see no r clemente to send her home on anxiety drugs and I would think that most of her pain would be well contro lled without opiates. She can see me in follow up in 2-4 weeks. I will try to keep her stocked up w ith samples, but she works for [employer] the [employer]. He should have a generous supply of samples as well of Eliquis. I have encouraged her to come back immediately if she starts having significant ble eding. A repeated T4-T3 and free thyroxine index were normal. Her tachycardia most likely was related to her blood loss. Her TSH can be repeated with thyroid stud ies in 1-2 months. Her potassium was 3 several days ago, just changing her diet and eating bananas w ill take care of this.
[2017-06-20 15:03] VITALS: BP 120/86; TEMP 97.7
--- NOTE | 2017-06-20 20:18 | DIS ---
DATE OF ADMISSION: 06/16/2017 DATE OF DISCHARGE: 06/20/2017 DIAGNOSES: 1. Menorrhagia with symptomatic anemia. 2. Recent pulmonary embolism on anticoagulation. PROCEDURES PERFORMED: 1. Blood transfusion x2 unit packed red cells. 2. Hysteroscopy D&C with endometrial ablation. SUMMARY OF HOSPITAL COURSE: Ms. Nguyen is a 31-year-old white female who recently had pulmonary emboli diagnosed by CT of the chest on admission 06/07/2017. We felt most likely to oral contraceptive use for managing menorrhagia. She was taking Xarelto 15 mg b.i.d. and began heavier and heavier bleedin g and presented to my office for menorrhagia and signs and symptoms of anemia on 06/16/2017. She was noted to be tachycardic in my office in 120s and with active heavy bleeding vaginally she was sent o chet to the hospital for admission. She was noted to have admission hemoglobin of 8 and was tachycard ic in the 120s and received 1 unit of packed red cells with improvement of her tachycardia. She was then given consult again by the Hospitalist [facility] due to some complaints of chest p ain. They at that time felt that she should continue being anticoagulated with heparin drip until pu lmonary consult cleared her for surgical therapy. Heparin drip was initiated by the [facility] and patient was noted to have bounce PTT in the [facility] ng of 06/17/2017. Dr. Chanel saw the patient, Pulmonary, the afternoon of 06/19/2017, heparin drip wa s stopped along with all anticoagulants and she was cleared for surgery, which I performed on the [facility] of 06/18/2017. She had D&C with the Helene endometrial ablation and hysteroscopy. Pathology o f the endometrial curettings is pending at this time. Patient's vaginal bleeding responded well to t he ablation procedure and no active heavy vaginal bleeding has recurred since the procedure has been performed. Her hemoglobin was 7.1 postoperatively and she did receive 1 additional unit of blood. A gain, her hemoglobin over 8 and was no significant symptoms of her anemia. Dr. Chanel continued to fo llow the patient with me in the hospital from Pulmonary and he has discharged her on Eliquis for anti coagulation 5 mg b.i.d. A repeat thyroid studies were normal. He plans to continue anticoagulation on this patient for 3 months and at that time she will pursue complete thrombosis panel to rule out a ny thrombophilia as etiology for her recent pulmonary embolism. We felt most likely was due to the o ral contraceptives and her menorrhagia issues as the culprit, but needs to be ruled out any thromboph kristy. I will follow up pathology and the endometrial curetting hopefully in the next day or two and she was given appointment with me in 2 weeks for followup from a gynecologic standpoint and she will see Dr. Chanel in approximately 2-4 weeks and follow up pulmonary status. She is also instructed to t manuel twice a day over the counter iron 325 mg, ferrous sulfate daily for her anemia and we will follow up hemoglobin and hematocrit at her next visit in 2 weeks.
== END 2017-06-20 14:59 | disposition home or self-care (01) ==
LOC: 3SE 15:36 → 2NO 06-17 00:35 → T4-A 06-19 11:20
PROVIDERS: ADMIT Obstetrics & Gynecology; ATTEND Obstetrics & Gynecology
PROC: 0UDB7ZX Extraction of Endometrium, Via Natural or Artificial Opening, Diagnostic (ICD-10-PCS; principal; 2017-06-20)
PROC: 0U5B7ZZ Destruction of Endometrium, Via Natural or Artificial Opening (ICD-10-PCS; 2017-06-20)
DX: N84.0 Polyp of corpus uteri (principal); E28.2 Polycystic ovarian syndrome; I26.99 Other pulmonary embolism without acute cor pulmonale; D62 Acute posthemorrhagic anemia; R00.0 Tachycardia, unspecified; E66.01 Morbid (severe) obesity due to excess calories; R07.9 Chest pain, unspecified; E05.90 Thyrotoxicosis, unspecified without thyrotoxic crisis or storm; D68.59 Other primary thrombophilia; I10 Essential (primary) hypertension; N92.0 Excessive and frequent menstruation with regular cycle; Z68.39 Body mass index [BMI] 39.0-39.9, adult; Z79.01 Long term (current) use of anticoagulants; Z79.899 Other long term (current) drug therapy; Z88.0 Allergy status to penicillin; Z88.8 Allergy status to other drugs, medicaments and biological substances; Z91.048 Other nonmedicinal substance allergy status; Z98.51 Tubal ligation status; Z90.49 Acquired absence of other specified parts of digestive tract
CPT/HCPCS: 36415; 36430; 71045; 80048; 80053; 84238; 84439; 84443; 84479; 84481; 85014; 85018; 85025; 85027; 85049; 85610; 85730; 86850; 86900; 86901; 88305; 93005; 93010; 96365; 96366; 96375; 96376; G0378; J1100; J1170; J1200; J1644; J1885; J2001; J2175; J2405; J2704; J3010; P9016